=== PATIENT | male | born 1995 | race Caucasian/White ===

== ENCOUNTER 2016-11-07 08:51 | Emergency (ER) | payer OTHER ==
[~2016-11-07] VITALS: Ht 188 cm; Wt 86.4 kg
[~2016-11-07 08:51] MED LIST: MEDROL 4MG DOSPA4 MG PO; RT ADVAIR 528 DISKUS IH; SINGULAIR 110 MG/TAB PO; TUSS PO; VENTOLIN0.09 MG; ZITHROMAX500 M2 PO
[2016-11-07 08:52] VITALS: TEMP 97.5
[2016-11-07 09:22] LABS: HYALINE CAST >12 /lpf; PH 7 (5-8); SQUAMOUS EPITHELIAL None Seen /hpf; URINE APPEARANCE Cloudy; URINE BACTERIA None Seen /hpf; URINE BILIRUBIN Negative (NEGATIVE); URINE BLOOD 3+ (NEGATIVE); URINE COLOR Yellow; URINE GLUCOSE Negative (NEGATIVE); URINE KETONE Trace (NEGATIVE); URINE RBC >50 /hpf; URINE UROBILINOGEN Negative (NEGATIVE)
[2016-11-07 09:28] LABS: BASO # 0.1 (0.0-0.2); BASO % 0.5 % (0.0-2.0); EOS # 0.2 (0.0-0.7); EOS % 2.1 % (0-4.0); GRAN % 72.5 % (42.2-75.2); HEMATOCRIT 43.1 % (36.0-47.0); LYMPH # 1.8 (1.2-3.4); MEAN CELL VOLUME 92 fl (80.0-95.0); MEAN CORPUSCULAR HEMOGLOBIN 32 pg (26.0-32.0); MEAN CORPUSCULAR HGB CONC 35 g/dl (33.0-37.0); MEAN PLATELET VOLUME 11.2 fl (7.4-10.4); MONO # 0.5 (0.1-0.6); MONO % 5.6 % (1.7-9.3); PLATELET COUNT 229 K/mm3 (130-400); REDCELL DISTRIBUTION WIDTH-CV 12.1 % (11.5-14.5); WHITE BLOOD COUNT 9.6 K/mm3 (4.8-10.8)
[2016-11-07 09:43] LABS: ADJUSTED CALCIUM 9.8 mg/dL (8.4-10.2); ALBUMIN 4.7 gm/dL (3.5-5.0); CALCIUM 10.4 mg/dL (8.4-10.2); CREATININE, serum 1.11 mg/dL (0.66-1.25); POTASSIUM 4.1 mmol/L (3.4-5.0); TOTAL PROTEIN 7.8 gm/dL (6.4-8.2)
[2016-11-07] MEDS ORDERED: VOLTAREN 75 DR75 MG PO (10:08)
[2016-11-07 10:14] VITALS: BP 141/67; PULSE 99
== END 2016-11-07 10:23 | disposition home or self-care (01) ==
LOC: COL.ER 08:51
PROVIDERS: Emergency Medicine
DX: N20.2 Calculus of kidney with calculus of ureter (principal)
CPT/HCPCS: J1885; J2765; J3010; J7030